=== PATIENT | female | born 1995 | race African-American/Black ===

== ENCOUNTER → 2018-04-04 | Day surgery (SDC) | payer OTHER ==
[~2018-04-04] MED LIST: BIRTH CONTROL; HYDROXYZINE HCL25 M1 PO; IBUPROFEN 400400 M2 PO; NOHOMEMEDICATIONS; PEPCID20 MG PO; PHENERGAN 25 MG25 M1 PO; PREDNISONE 20 M20 MG PO
--- NOTE | ~2018-04-04 | PROC ---
[address] [id number] PROCEDURE REPORT Name: ALIYA JOSEPH Room: [facility].#: [id number] Admission: 04/04/18 Attend Phys: Alfredo Scott MD Discharge: Date of : 89 Report #: [id number] THIS REPORT FOR: //name// For GI report, please see the Provation report in [employer] content. By: 1100Medical Records Staff [facility]
[2018-04-04 10:21] LABS: HEMATOCRIT 43.1 % (37.0-47.0); HEMOGLOBIN 14.2 gm/dL (12.0-15.0)
== END | disposition home or self-care (01) ==
LOC: M.SUR 09:34 → EDSTATUS 10:37
PROVIDERS: Internal Medicine Gastroenterology
DX: K25.9 Gastric ulcer, unspecified as acute or chronic, without hemorrhage or perforation (principal); E66.9 Obesity, unspecified; G43.909 Migraine, unspecified, not intractable, without status migrainosus; Z98.890 Other specified postprocedural states; Z79.899 Other long term (current) drug therapy